=== PATIENT | male | born 1940 | race Caucasian/White ===

== ENCOUNTER 2021-04-28 14:29 | Emergency (ER) | payer MEDICARE, OTHER ==
[~2021-04-28 14:29] MED LIST: ASPIRIN CHEWABL81 MG PO; ASPIRIN EC81 MG PO; AUGMENTIN 875-1 EACH PO; BALANCED B-CO400 MCG PO; BENADRYL25 MG PO; CERTAGEN1 EACH PO; COZAAR100 MG PO; FAMCICLOVIR500 MG PO; FLOMAX0.4 MG PO; GLYCOTROL CAPS1 EACH PO; KEFLEX500 MG PO; LOSARTAN-HCTZ1 EAC1 PO; LOVAZA1 GM PO; MULTIVITAMINS1 EAC1 PO; PROBIOTIC1 EAC3 PO; VIBRAMYCIN100 MG PO; VITAMIN B-121000 MC1 PO; ZOCOR20 MG PO
[2021-04-28 16:35] LABS: BASOPHIL 0.4 % (0-2); EOSINOPHIL 1.5 % (0-7); LYMPHOCYTE 19.8 % (15-48); MCH 33.2 pg (25.0-31.0); MCV 94.8 fL (78.0-100.0); MPV 9.6 fL (6.0-9.5); NEUTROPHIL 70.1 % (41-80); NRBC 0; PLT 187 K/uL (150-400); RBC 4.22 M/uL (4.70-6.00); RDW 12.6 % (11.5-14.0); WBC 8.2 K/uL (4.0-10.5)
[2021-04-28 16:37] LABS: BILIRUBIN NEGATIVE (NEGATIVE); BLOOD NEGATIVE Ery/uL (NEGATIVE); CLARITY CLEAR (CLEAR); COLOR YELLOW (YELLOW); GLUCOSE (U) NORMAL (NORMAL); LEUKOCYTES NEGATIVE Leu/uL (NEGATIVE); NITRITE NEGATIVE (NEGATIVE); PROTEIN NEGATIVE (NEGATIVE); SPECIFIC GRAVITY 1.015 (1.001-1.030); UROBILINOGEN 0.2 mg/dL (0.2-1.0)
[2021-04-28 16:45] LABS: INR 1.08 (0.9-1.2); PROTHROMBIN TIME 13.4 SECONDS (11.8-13.4); PTT 32.9 SECONDS (24.4-34.7)
[2021-04-28 16:46] LABS: D-DIMER 0.36 ug/mLFEU (0.00-0.41)
[2021-04-28 16:54] LABS: ALBUMIN 3.8 g/dL (3.4-5.0); BUN/CREAT RATIO (CALC) 14.5 RATIO; CREATININE 0.69 mg/dL (0.67-1.17); GLOBULIN (CALCULATION) 3.5 g/dL; MAGNESIUM 1.8 mg/dL (1.8-2.4); TOTAL PROTEIN 7.3 g/dL (6.4-8.2)
[2021-04-28 17:04] LABS: PRO-BNP 404 pg/mL (<450)
== END 2021-04-28 18:21 | disposition home or self-care (01) ==
LOC: FER 14:29
PROVIDERS: Emergency Medicine
DX: U07.1 COVID-19 (principal); J44.9 Chronic obstructive pulmonary disease, unspecified; I10 Essential (primary) hypertension; Z88.1 Allergy status to other antibiotic agents; Z88.2 Allergy status to sulfonamides; Z88.5 Allergy status to narcotic agent; Z79.82 Long term (current) use of aspirin; Z79.899 Other long term (current) drug therapy
CPT/HCPCS: 36415; 36600; 71045; 80053; 81003; 82803; 83735; 83880; 84484; 85025; 85379; 85610; 85730; 87040; 87088; 93005; 94640; 94664; J7030

== ENCOUNTER → 2022-01-04 | Day surgery (SDC) | payer MEDICARE, OTHER ==
[~2022-01-04] VITALS: Ht 177.8 cm; Wt 72.8 kg
[~2022-01-04] MED LIST changes: +DUONEB 2.5-0.5M1 AMP INH; +GABAPENTIN 100100 MG PO; +SIMVASTATIN20 MG PO
[2022-01-04 08:48] LABS: HCT 41.1 % (42.0-52.0); HGB 14.1 g/dl (13.2-18.0); MCH 32.5 pg (25.0-31.0); MCHC 34.3 g/dL (32.0-36.0); MCV 94.7 fL (78.0-100.0); RBC 4.34 M/uL (4.70-6.00)
[2022-01-04 09:05] LABS: BILIRUBIN - TOTAL 0.8 mg/dL (0.2-1.0); BUN/CREAT RATIO (CALC) 10.7 RATIO; CREATININE 0.75 mg/dL (0.67-1.17); GLOBULIN (CALCULATION) 3.2 g/dL; POTASSIUM 3.9 mmol/L (3.5-5.1); TOTAL PROTEIN 7.2 g/dL (6.4-8.2)
== END | disposition home or self-care (01) ==
LOC: FAS 07:58
PROVIDERS: Surgery
DX: K29.60 Other gastritis without bleeding (principal); I10 Essential (primary) hypertension; J44.9 Chronic obstructive pulmonary disease, unspecified; Z88.1 Allergy status to other antibiotic agents; Z88.2 Allergy status to sulfonamides; Z88.5 Allergy status to narcotic agent; Z88.8 Allergy status to other drugs, medicaments and biological substances; Z87.891 Personal history of nicotine dependence; Z79.82 Long term (current) use of aspirin; Z79.899 Other long term (current) drug therapy; Z80.0 Family history of malignant neoplasm of digestive organs
CPT/HCPCS: 36415; 80053; J2704; J7120